=== PATIENT | male | born 1995 | race Hispanic/Latino ===

== ENCOUNTER → 2024-10-18 | Outpatient (CLI) | payer OTHER ==
--- NOTE | 2024-10-18 11:16 | HMCIMG ---
Exam Type: US ABDOMINAL COMPLETE Clinical Information: unspecified abd pain Comparison: None Findings: The liver shows normal echogenicity and is otherwise unremarkable. The liver measures less than 16 cm in length. Doppler evaluation shows patent portal and hepatic veins. The gallbladder shows no significant abnormalities. Specifically, no calculi are seen. The gallbladder wall thickness is 2 mm. No bile duct dilatation is noted. The common bile duct measures 2 mm. The right kidney measures 10.3 x 4.6 cm. The left kidney measures 11.2 x 5 .2 cm. The kidneys are normal in size and echogenicity. No hydronephrosis or renal calculi are seen. There are no renal masses. The pancreas is unremarkable. The spleen is unremarkable. The aorta and inferior vena cava show no significant abnormalities. IMPRESSION: Normal exam.
== END | disposition home or self-care (01) ==
LOC: RAH 08:08
PROVIDERS: ATTEND Nurse Practitioner Family
DX: R10.9 Unspecified abdominal pain (principal)
CPT/HCPCS: 76700